=== PATIENT | male | born 1980 | race Two or more races ===

== ENCOUNTER 2019-02-23 11:51 | Emergency (ER) | payer OTHER ==
[2019-02-23] MEDS ORDERED: Acetaminophen/HYDROcodone 325-5 MG Tab PO ONE (12:17)
--- NOTE | 2019-02-23 12:20 | EDM.PDOC ---
ED HPI GENERAL MEDICAL PROBLEM - General Chief Complaint: Upper Extremity Injury/Pain Stated Complaint: INJURED SHOULDER Time Seen by Provider: 02/23/19 11:52 Source of Information: Reports: Patient History Limitations: Reports: No Limitations - History of Present Illness INITIAL COMMENTS - FREE TEXT/NARRATIVE: HISTORY AND PHYSICAL: History of present illness: Patient is a 38-year-old male who presents to the emergency room with complaints of right shoulder and forearm pain after a fall. Patient states he slipped from standing height landing on his right shoulder. He denies hitting his head or having any loss of consciousness. He states it is very painful to move the right shoulder discomfort when palpating the right forearm. He denies any numbness, tingling or weakness of the extremity. Offers no systemic complaints. Review of systems: As per history of present illness and below otherwise all systems reviewed and negative. Past medical history: As per history of present illness and as reviewed below otherwise noncontributory. Surgical history: As per history of present illness and as reviewed below otherwise noncontributory. Social history: See social history for further information Family history: As per history of present illness and as reviewed below otherwise noncontributory. Physical exam: General: Well-developed and well nourished 38-year-old male. Alert and oriented. Nontoxic appearing and in no acute distress. HEENT: Atraumatic, normocephalic, pupils equal and reactive bilaterally, negative for conjunctival pallor or scleral icterus, mucous membranes moist, trachea midline. No drooling or trismus noted. No meningeal signs. No hot potato voice noted. Lungs: Clear to auscultation, breath sounds equal bilaterally, chest nontender. Heart: S1S2, regular rate and rhythm without overt murmur Abdomen: Soft, nondistended, nontender. Negative for masses or hepatosplenomegaly. Negative for costovertebral tenderness. Pelvis: Stable nontender. Skin: Intact, warm, dry. No lesions or rashes noted. Extremities: Limited range of motion of the right shoulder due to pain. Able to touch the opposite shoulder with the right hand. Otherwise has moves all extremities per self without difficulty or deficits. Pain with palpation to the right anterior shoulder girdle and to the right mid forearm. Strong radial pulse. Capillary refill less than 3 seconds. Strong grasp the affected extremity. No clavicle pain/tenderness. No obvious deformity or soft tissue swelling. Neurovascular unremarkable. C-spine/Back: No pinpoint vertebral tenderness upon palpation. No crepitus, step -offs or obvious deformities. Patient is ambulatory into the emergency room without difficulty or deficit. Able to rock back on heels and walk on toes. Denies any urinary or fecal incontinence. Denies any numbness, tingling or saddle paresthesia. Neuro: Awake, alert, oriented. Cranial nerves II through XII unremarkable. Cerebellum unremarkable. Motor and sensory unremarkable throughout. Exam nonfocal. Notes: X-ray of the right shoulder shows joint space narrowing at the before meals joint. Otherwise unremarkable for fracture or dislocations. Forearm x-ray shows no acute findings. Patient was given a sling and educated to follow-up with the orthopedic provider. Supportive care measures were reviewed and discussed. Voices understanding and is agreeable to plan of care. Denies any further questions or concerns at this time. Diagnostics: X-ray of right shoulder and forearm Therapeutics: Orange, Sling Prescription: Tylenol #3 (15) Impression: Right shoulder injury Fall Plan: 1. Rest, ice, elevate the affected extremity. Please wear the splint as directed. 2. Tylenol and/or Ibuprofen as needed for pain management. 3. Follow up with the Orthopedic provider as we discussed. Return to the ED as needed and as discussed. Definitive disposition and diagnosis as appropriate pending reevaluation and review of above. R shoulder Pain Score (Numeric/FACES): 8 - Related Data Allergies Allergy/AdvReac Type Severity Reaction Status Date / Time No Known Allergies Allergy Verified 02/23/19 11:59 Home Meds: Home Meds . [No Known Home Meds] 02/23/19 [History] Past Medical History - Past Health History Medical/Surgical History: Denies Medical/Surgical History - Infectious Disease History Infectious Disease History: Reports: Chicken Pox Social & Family History - Tobacco Use Smoking Status *Q: Current Every Day Smoker Years of Tobacco use: 5 Packs/Tins Daily: 0.5 - Caffeine Use Caffeine Use: Reports: Coffee - Recreational Drug Use Recreational Drug Use: No Review of Systems - Review of Systems Review Of Systems: ROS reveals no pertinent complaints other than HPI. ED EXAM, GENERAL - Physical Exam Exam: See Below (See dictation) Course - Vital Signs Last Recorded V/S: Last Vital Signs Temp 97.0 F 02/23/19 11:57 Pulse 79 02/23/19 11:57 Resp 16 02/23/19 11:57 BP 156/80 H 02/23/19 11:57 Pulse Ox 97 02/23/19 11:57 - Orders/Labs/Meds Orders: Active Orders 24 hr Category Date Time Status DME for Discharge [COMM] Stat Oth 02/23/19 13:12 Ordered Meds: Medications Discontinued Medications Generic Name Dose Route Start Last Admin Trade Name Skyler PRN Reason Stop Dose Admin Hydrocodone Bitart/Acetaminophen 1 tab 02/23/19 12:17 02/23/19 12:42 Orange 325-5 Mg PO 02/23/19 12:18 1 tab ONETIME ONE Administration Departure - Departure Time of Disposition: 13:13 Disposition: Home, Self-Care 01 Clinical Impression: Right shoulder injury Qualifiers: Encounter type: initial encounter Qualified Code(s): S49.91XA - Unspecified injury of right shoulder and upper arm, initial encounter Fall Qualifiers: Encounter type: initial encounter Qualified Code(s): W19.XXXA - Unspecified fall, initial encounter - Discharge Information Instructions: Shoulder Pain, [id number] Referrals: PCP,None [Primary Care Provider] - Forms: ED Department Discharge Additional Instructions: The following information is given to patients seen in the emergency department who are being discharged to home. This information is to outline your options for follow-up care. We provide all patients seen in our emergency department with a follow-up referral. The need for follow-up, as well as the timing and circumstances, are variable depending upon the specifics of your emergency department visit. If you don't have a primary care physician on staff, we will provide you with a referral. We always advise you to contact your personal physician following an emergency department visit to inform them of the circumstance of the visit and for follow-up with them and/or the need for any referrals to a consulting specialist. The emergency department will also refer you to a specialist when appropriate. This referral assures that you have the opportunity for follow-up care with a specialist. All of these measure are taken in an effort to provide you with optimal care, which includes your follow-up. Under all circumstances we always encourage you to contact your private physician who remains a resource for coordinating your care. When calling for follow-up care, please make the office aware that this follow-up is from your recent emergency room visit. If for any reason you are refused follow-up, please contact the [facility] Emergency Department at and asked to speak to the emergency department charge nurse. [facility] [address] [place] [address] [address] 1. Rest, ice, elevate the affected extremity. Please wear the sling as directed. 2. Tylenol and/or Ibuprofen as needed for pain management. 3. Follow up with the Orthopedic provider as we discussed. Return to the ED as needed and as discussed. - My Orders Last 24 Hours: My Active Orders 02/23/19 13:12 DME for Discharge [COMM] Stat - Assessment/Plan Last 24 Hours: My Active Orders 02/23/19 13:12 DME for Discharge [COMM] Stat
--- NOTE | 2019-02-23 13:08 | CR ---
Right shoulder: Three views of the right shoulder were obtained. Comparison: No prior shoulder study. Joint space narrowing is noted within the acromioclavicular joint. Glenohumeral joint appears normal. No fracture, dislocation or other bony abnormality is seen. Impression: 1. Joint space narrowing within the acromioclavicular joint. 2. Right shoulder study is otherwise unremarkable. Diagnostic code #2 MTDD
--- NOTE | 2019-02-23 13:10 | CR ---
Right forearm: Two views of the right forearm were obtained. Comparison: No previous study. No fracture or other bony abnormality is appreciated. Impression: No bony abnormality is seen on right forearm study. Diagnostic code #2 MTDD
== END 2019-02-23 13:35 | disposition home or self-care (01) ==
LOC: MW.ED 11:51
DX: S49.91XA Unspecified injury of right shoulder and upper arm, initial encounter (principal); F17.210 Nicotine dependence, cigarettes, uncomplicated; W01.0XXA Fall on same level from slipping, tripping and stumbling without subsequent striking against object, initial encounter
CPT/HCPCS: 73030; 73090; 99283; A9270; 99284

== ENCOUNTER 2019-05-06 08:05 | Day surgery (SDC) | payer OTHER ==
[~2019-05-06 08:05] MED LIST: Lactated Ringers 1,000 ML IV SCH; ceFAZolin 2 GM in Premix Bag 1 BAG IV SCH
[2019-05-06] MEDS ORDERED: Dexamethasone 4 MG/ML 5 ML MDV ONE (08:39)
[2019-05-06] MEDS ORDERED: Midazolam 1 MG/ML 2 ML SDV ONE (08:40)
[2019-05-06] MEDS ORDERED: fentaNYL 100 MCG/2 ML SDV ONE (08:40)
[2019-05-06] MEDS ORDERED: Propofol 200 MG/20 ML SDV ONE (08:40)
[2019-05-06] MEDS ORDERED: Ondansetron 4 MG/2 ML SDV ONE (08:40)
[2019-05-06] MEDS ORDERED: Rocuronium 100 MG/10 ML Syringe ONE (08:41)
[2019-05-06] MEDS ORDERED: Ketorolac 30 MG/ML SDV ONE (08:41)
[2019-05-06] MEDS ORDERED: Bupivacaine 0.5% 30 ML SDV ONE (08:41)
--- NOTE | 2019-05-06 09:13 | PCM.PREANE ---
Preanesthetic Assessment - Anesthesia/Transfusion/Family Hx Anesthesia History: No Prior Anesthesia Family History of Anesthesia Reaction: No Transfusion History: No Prior Transfusion(s) - Review of Systems General: No Symptoms Pulmonary: No Symptoms Cardiovascular: No Symptoms Gastrointestinal: No Symptoms Neurological: No Symptoms Other: Reports: None - Physical Assessment NPO Status Date: 05/05/19 Vital Signs: Last Vital Signs Temp 97.7 F 05/06/19 08:59 Pulse 92 05/06/19 08:59 Resp 18 05/06/19 08:59 BP 142/93 H 05/06/19 08:59 Pulse Ox 96 05/06/19 08:59 Height: 5 ft 11 in Weight: 117.934 kg ASA Class: 2 Mental Status: Alert & Oriented x3 Airway Class: Mallampati = 2 Dentition: Reports: Normal Dentition ROM/Head Extension: Full Lungs: Clear to Auscultation, Normal Respiratory Effort Cardiovascular: Regular Rate, Regular Rhythm - Allergies Allergies/Adverse Reactions: Allergies Allergy/AdvReac Type Severity Reaction Status Date / Time No Known Allergies Allergy Verified 05/06/19 08:57 - Blood Blood Available: No - Anesthesia Plan Pre-Op Medication Ordered: None Beta Sofia: Atenolol - Acknowledgements Anesthesia Type Planned: General Anesthesia Pt an Appropriate Candidate for the Planned Anesthesia: Yes Alternatives and Risks of Anesthesia Discussed w Pt/Guardian: Yes Pt/Guardian Understands and Agrees with Anesthesia Plan: Yes Additional Comments: PMH: newly dxed DM@, started metformin after pre op office visit PLAN: get with [facility] PreAnesthesia Questionnaire - Past Health History Medical/Surgical History: Denies Medical/Surgical History HEENT History: Reports: None Cardiovascular History: Reports: None Respiratory History: Reports: None Gastrointestinal History: Reports: None Genitourinary History: Reports: None Musculoskeletal History: Reports: Other (See Below) Other Musculoskeletal History: rt shoulder pain Neurological History: Reports: None Psychiatric History: Reports: None Endocrine/Metabolic History: Reports: Obesity/BMI 30+ Hematologic History: Reports: None Immunologic History: Reports: None Oncologic (Cancer) History: Reports: None Dermatologic History: Reports: None - Infectious Disease History Infectious Disease History: Reports: Chicken Pox - Past Surgical History Head Surgeries/Procedures: Reports: None HEENT Surgical History: Reports: None Cardiovascular Surgical History: Reports: None Respiratory Surgical History: Reports: None GI Surgical History: Reports: None Male Surgical History: Reports: None Endocrine Surgical History: Reports: None Neurological Surgical History: Reports: None Musculoskeletal Surgical History: Reports: None Oncologic Surgical History: Reports: None Dermatological Surgical History: Reports: None - SUBSTANCE USE Smoking Status *Q: Current Every Day Smoker Tobacco Use Within Last Twelve Months: Cigarettes - HOME MEDS Home Medications: Home Meds . [No Known Home Meds] 02/23/19 [History] - CURRENT (IN HOUSE) MEDS Current Meds: Current Medications Cefazolin Sodium/Dextrose 2 gm (/ Premix) 50 mls @ 100 mls/hr IV ONCALL [facility] Lactated Ringer's (Ringers, Lactated) 1,000 mls @ 100 mls/hr IV ASDIRECTED [facility] Last Admin: 05/06/19 08:56 Dose: 100 mls/hr Discontinued Medications Bupivacaine HCl (Marcaine 0.5%) Confirm Administered Dose 30 ml .ROUTE .STK-MED ONE Stop: 05/06/19 08:42 Dexamethasone (Dexamethasone) Confirm Administered Dose 20 mg .ROUTE .STK-MED ONE Stop: 05/06/19 08:40 Fentanyl (Sublimaze) Confirm Administered Dose 200 mcg .ROUTE .STK-MED ONE Stop: 05/06/19 08:41 Ketorolac Tromethamine (Toradol) Confirm Administered Dose 30 mg .ROUTE .STK- MED ONE Stop: 05/06/19 08:42 Lidocaine HCl (Xylocaine-Mpf 1%) Confirm Administered Dose 5 ml .ROUTE .STK-MED ONE Stop: 05/06/19 08:40 Midazolam HCl (Versed 1 Mg/Ml) Confirm Administered Dose 2 mg .ROUTE .STK-MED ONE Stop: 05/06/19 08:41 Ondansetron HCl (Zofran) Confirm Administered Dose 4 mg .ROUTE .STK-MED ONE Stop: 05/06/19 08:41 Propofol (Diprivan 20 Ml) Confirm Administered Dose 400 mg .ROUTE .STK-MED ONE Stop: 05/06/19 08:41 Rocuronium [place] (Zemuron) Confirm Administered Dose 100 mg .ROUTE .STK-MED ONE Stop: 05/06/19 08:42
[2019-05-06] MEDS ORDERED: Sugammadex Sodium 200 MG/2 ML VIAL ONE (09:14)
--- NOTE | 2019-05-06 09:17 | PCM.SN ---
- Free Text/Narrative Note: procedure note: L isb in pre op holding for post op pain management, consent obtained, risks discussed, time out performed, skin antisepsis, local wheel with 1% xylo. needle with stimulator advanced, twitch at 6/min at depth of 3/16 inch, twitch maintained to .38 mev, dosed in 5 ml increments to a 30 ml volume, 0.5% bupibicaine with 8 mg of dexamethasone, no comps. pre procedure sedation with versed and fentanyl, see anes record for doses.
[2019-05-06] MEDS ORDERED: ceFAZolin 1 GM Vial ONE (09:48)
[2019-05-06] MEDS ORDERED: Sodium Chloride 0.9% 20 ML ONE (09:48)
[2019-05-06] MEDS ORDERED: fentaNYL 100 MCG/2 ML SDV IVPUSH ONE (10:31)
[2019-05-06] MEDS ORDERED: Morphine 4 MG/ML Syringe IVPUSH ONE (10:32)
[2019-05-06] MEDS ORDERED: ePHEDrine 50 MG/ML SDV ONE (10:36)
[2019-05-06] MEDS ORDERED: Morphine 10 MG/ML Syringe ONE (10:55)
[2019-05-06] MEDS ORDERED: Phenylephrine/Normal Saline 100 MCG/ML 10 ML Syringe ONE (11:38)
--- NOTE | 2019-05-06 12:38 | PCM.POSTAN ---
POST ANESTHESIA ASSESSMENT - MENTAL STATUS Mental Status: Alert - VITAL SIGNS Vital Signs: Last Vital Signs Temp 36 C 05/06/19 12:18 Pulse 96 05/06/19 12:34 Resp 17 05/06/19 12:34 BP 107/63 05/06/19 12:34 Pulse Ox 95 05/06/19 12:34 - RESPIRATORY Respiratory Status: Respiratory Rate WNL - CARDIOVASCULAR CV Status: Pulse Rate WNL - GASTROINTESTINAL GI Status: No Symptoms - PAIN Pain Score: 0 (Block functioning well) - POST OP HYDRATION Hydration Status: Adequate & Stable - OBSERVATIONS Free Text/Narrative:: Doing well. No pain or nausea. VSS. Ready for transfer to phase 2
[2019-05-06] MEDS ORDERED: Acetaminophen/oxyCODONE 325-5 MG Tab PO PRN (13:32)
--- NOTE | 2019-05-06 14:12 | PCM48HPAN ---
Post Anesthesia Note - EVALUATION WITHIN 48HRS OF ANESTHETIC Vital Signs in Normal Range: Yes Patient Participated in Evaluation: Yes Respiratory Function Stable: Yes Airway Patent: Yes Cardiovascular Function Stable: Yes Hydration Status Stable: Yes Pain Control Satisfactory: Yes Nausea and Vomiting Control Satisfactory: Yes Mental Status Recovered: Yes Vital Signs: Last Vital Signs Temp 97.2 F 05/06/19 12:46 Pulse 87 05/06/19 13:04 Resp 14 05/06/19 13:04 BP 118/72 05/06/19 13:04 Pulse Ox 94 L 05/06/19 13:04
--- NOTE | 2019-05-06 15:53 | OR ---
SURGEON: Lincoln Jiménez DATE OF PROCEDURE: 05/06/2019 PREOPERATIVE DIAGNOSES: 1. Right rotator cuff tear. 2. Right shoulder impingement. POSTOPERATIVE DIAGNOSES: 1. Right rotator cuff tear. 2. Right shoulder impingement. 3. Glenoid labral degenerative tear. OPERATIVE PROCEDURES: 1. Right shoulder arthroscopy. 2. Subacromial decompression. 3. Glenoid labral debridement. 4. Open rotator cuff repair. PRIMARY SURGEON: Lincoln Jiménez DO. ANESTHESIA: General endotracheal intubation. FLUID: Lactated Ringer's solution. ESTIMATED BLOOD LOSS: 25 mL. COMPLICATIONS: None. SPECIMEN: None. DISCHARGE DISPOSITION: Stable to PACU. HISTORY AND INDICATIONS FOR THE PROCEDURE: The patient was seen preoperatively in the clinic. He was injured at work. Preoperative imaging confirmed the above-mentioned diagnoses. Risks and benefits of the procedure explained to the patient, informed consent was obtained. DETAILS OF PROCEDURE: The patient was seen preoperatively in the preoperative holding area by myself and the operative staff. He was brought to the operative suite by the Anesthesia staff where general endotracheal intubation was administered. He was placed in the beach chair position. All extremities found to be well padded. The neck was slightly flexed. His eyes were protected. The right upper extremity was then prepped and draped in a sterile manner. Time-out was called identifying the correct patient, the correct procedure, the correct site, and that antibiotics been given within appropriate period of time. The posterior portal was then made. The joint was entered. He had degenerative labral tearing. Anterior portal was then made. We did use a shaver and an ablation unit to debride the degenerative labral tear. A large rotator cuff tear was visualized. There was mild glenohumeral arthritis present primarily on the glenoid side. I then entered the subacromial space and then made a lateral portal. We then debrided the subacromial space with the ablation unit and the shaver clearing off the inferior aspect of the acromion. I then used a bur to perform a subacromial decompression. At this point, it was obvious that this was a very large rotator cuff tear that was retracted all the way to the glenoid. I then removed my instruments from the shoulder and then proceeded with my open rotator cuff repair. I used another ChloraPrep and then made a saber incision just distal to the acromion laterally and carried that down to the deltoid. I went between the anterior and median raphe of the deltoid and used Gelpi for retraction. I was unable to feel the rotator cuff, and for this reason, I brought more of the deltoid off the acromion. I widened this to about a 3 to 4 cm area to provide more access. At this point, I was still unable to grab the rotator cuff, so I used the posterior portal and entered it with the arthroscopy unit and then using a Scorpion and an Iconix anchor was able to pass 1 suture through and bring it out laterally just a little bit and tie that down and then do this with the second set of sutures. At this point, I retracted it more to see if we could get closer to the [place] footprint. I then used 2 more Iconix anchors and placed the sutures through the Scorpion and tied these down. I then placed 2 lateral anchors, which were knotless anchors, and then in a lupillo-cross fashion tied the medial row sutures to the lateral anchors and then tightened those down as they were able to be retracted even further. After that had been accomplished, I evaluated his range of motion and thought that it was good. I believe that we had accomplished as best as we could by getting the rotator cuff within about 5 to 7 mm of the [place] footprint of the rotator cuff. We then copiously irrigated with Betadine-infused irrigation and then closed the deltoid interval with #1 Stratafix in a watertight manner followed by subcutaneous closure with 0 Stratafix and then skin nina. We also closed the other portals with skin nina. We then placed Betadine-soaked Adaptic, fluffs, and Medipore tape. The patient was allowed to awaken from general anesthesia and then taken to the PACU in stable condition. [id number] / MODL /[id number]
== END 2019-05-06 14:45 | disposition home or self-care (01) ==
LOC: MW.SDS 08:05
PROVIDERS: ATTEND Orthopaedic Surgery
DX: M75.101 Unspecified rotator cuff tear or rupture of right shoulder, not specified as traumatic (principal); M25.811 Other specified joint disorders, right shoulder; S43.491A Other sprain of right shoulder joint, initial encounter; E11.9 Type 2 diabetes mellitus without complications; F17.210 Nicotine dependence, cigarettes, uncomplicated; E66.9 Obesity, unspecified; Z68.35 Body mass index [BMI] 35.0-35.9, adult
CPT/HCPCS: 23410; 82962; A9270; J0131; J0690; J1100; J1885; J2001; J2250; J2270; J2370; J2405; J2704; J3010; J3490; J7120; 01610; 88304; C1713; C1776